=== PATIENT | male | born 1955 | race Caucasian/White ===

== ENCOUNTER → 2019-05-29 | Outpatient (CLI) | payer OTHER ==
[~2019-05-29] MED LIST: ASCO10004 PO; B CO1TAB14 PO; CHOL10003 PO; CRAN200C2 PO; FLUT9.9S NS; LACT1CAP37 PO; MAGN400T9 PO; METH500C3 PO; MINERAL SUPPLEMENT PO; MULT1TAB60 PO; OMEG1CAP23 PO; POTA99TA2 PO; TAMS-11 PO; TURM1POW PO; [UNRECOGNIZED DRUG - CODE] PO; [UNRECOGNIZED DRUG - OTHER] PO; [UNRECOGNIZED DRUG - REMARK] PO
[2019-05-29 11:38] LABS: BASOPHILS # (AUTO) 0.04 x10^3/uL (0-0.1); BASOPHILS % (AUTO) 1 % (0-1); EOSINOPHILS # (AUTO) 0.07 x10^3/uL (0-0.4); EOSINOPHILS % (AUTO) 1 % (1-7); LYMPHOCYTES # (AUTO) 2.03 x10^3/uL (1-3.4); LYMPHOCYTES % (AUTO) 40 % (22-44); MD NO; MEAN CORPUSCULAR HEMOGLOBIN 32.8 pg (27.5-34.5); MEAN CORPUSCULAR HGB CONC 33.8 g/dL (33.2-36.2); MEAN CORPUSCULAR VOLUME 96.9 fL (81-97); MEAN PLATELET VOLUME 8.3 fL (7.4-10.4); MONOCYTES # (AUTO) 0.35 x10^3/uL (0.2-0.8); MONOCYTES % (AUTO) 7 % (2-9); NEUTROPHILS # (AUTO) 2.64 x10^3/uL (1.8-6.8); NEUTROPHILS % (AUTO) 52 % (42-75); PLATELET COUNT 195 x10^3/uL (130-400); RED BLOOD COUNT 4.98 x10^6/uL (4.38-5.82); RED CELL DISTRIBUTION WIDTH 12.8 % (9.4-14.8)
[2019-05-29 11:44] LABS: MICROSCOPIC NOT IND
[2019-05-29 11:51] LABS: ALBUMIN 4.1 g/dL (3.4-5.0); ANION GAP 4 mmol/L (5-15); CALCIUM 9.8 mg/dL (8.5-10.1); CHLORIDE 107 mmol/L (98-107)
[2019-05-29 11:54] LABS: ALANINE AMINOTRANSFERASE 32 U/L (12-78); ALKALINE PHOSPHATASE 96 U/L (45-117); BILIRUBIN,TOTAL 0.6 mg/dL (0.2-1.0); TOTAL PROTEIN 7.6 g/dL (6.4-8.2)
== END | disposition home or self-care (01) ==
LOC: STAR 10:32
PROVIDERS: ATTEND Urology
DX: Z01.818 Encounter for other preprocedural examination (principal); C61 Malignant neoplasm of prostate
CPT/HCPCS: 36415; 80053; 81003; 85025; 87086; 93005

== ENCOUNTER 2019-06-07 09:50 | Day surgery (SDC) | payer OTHER ==
[~2019-06-07] VITALS: Ht 175.3 cm; Wt 72.6 kg
[2019-06-07] MEDS ORDERED: LACTATED RINGERS 1,000 ML IV SCH (10:05)
[2019-06-07 10:08] VITALS: BP_SYST 143
[2019-06-07] MEDS ORDERED: BUPIVACAINE/PF 0.25% ONE (10:08)
[2019-06-07] MEDS ORDERED: EPINEPHRINE 1 MG/ML, 1ML ONE (10:08)
[2019-06-07] MEDS ORDERED: THROMBIN 5,000 UNIT VIAL TP ONE (10:08)
[2019-06-07] MEDS ORDERED: OPIUM/BELLADONNA SUPP.RECT 16.2-60 MG ONE (10:08)
[2019-06-07] MEDS ORDERED: MIDAZOLAM 1 MG/ML, 2ML ONE (10:47)
[2019-06-07] MEDS ORDERED: FENTANYL PF 250 MCG/5ML ONE (10:47)
[2019-06-07] MEDS ORDERED: FAMOTIDINE 20 MG/2 ML IVPush ONE (11:00)
[2019-06-07] MEDS ORDERED: GABAPENTIN 300 MG CAPSULE PO ONE (11:00)
[2019-06-07] MEDS ORDERED: ACETAMINOPHEN 500 MG TABLET PO ONE (11:00)
[2019-06-07] MEDS ORDERED: DEXAMETHASONE 4 MG/ML, 1ML ONE ×2 (11:08)
[2019-06-07] MEDS ORDERED: PROPOFOL 10 MG/ML, 20ML ONE (11:09)
[2019-06-07] MEDS ORDERED: ROCURONIUM 10MG/ML,5ML ONE (11:09)
[2019-06-07] MEDS ORDERED: CEFAZOLIN 1,000 MG ONE (11:33)
[2019-06-07] MEDS ORDERED: EPHEDRINE 50 MG/ML, 1ML ONE (11:55)
[2019-06-07] MEDS ORDERED: ONDANSETRON 2MG/ML, 2ML IV PRN (13:30)
[2019-06-07] MEDS ORDERED: MIDAZOLAM 1 MG/ML, 2ML IV PRN (13:30)
[2019-06-07] MEDS ORDERED: FENTANYL PF 100 MCG/2ML IV PRN (13:30)
[2019-06-07] MEDS ORDERED: PROMETHAZINE 25 MG/ML, 1ML IV PRN (13:30)
[2019-06-07] MEDS ORDERED: LABETALOL 5MG/ML, 20ML IV PRN (13:30)
[2019-06-07] MEDS ORDERED: HYDROmorphone 2 MG/ML, 1ML IVPush PRN (13:30)
[2019-06-07] MEDS ORDERED: hydrALAzine 20 MG/ML, 1ML IV PRN (13:30)
[2019-06-07] MEDS ORDERED: OXYcodone 5 MG/5 ML ORAL.SOL UDC PO PRN (13:30)
[2019-06-07] MEDS ORDERED: MEPERIDINE/PF 25MG/ML,1ML IVPush PRN (13:30)
[2019-06-07] MEDS ORDERED: ONDANSETRON 2MG/ML, 2ML ONE (14:50)
[2019-06-07] MEDS ORDERED: OXYcodone 5 MG/5 ML ORAL.SOL UDC ONE (15:31)
[2019-06-07] MEDS ORDERED: FENTANYL PF 100 MCG/2ML ONE (15:31)
[2019-06-07] MEDS ORDERED: OPIUM/BELLADONNA SUPP.RECT 16.2-60 MG PR PRN (17:00)
[2019-06-07] MEDS ORDERED: morphine SULFATE 10 MG/ML, 1ML IV PRN (17:00)
[2019-06-07] MEDS: ACETAMINOPHEN 500 MG TABLET PO SCH ×2 (17:02→23:08)
[2019-06-07] MEDS: D5%-0.45NACL+KCL 20MEQ 1,000 ML IV SCH (18:30)
[2019-06-07 20:25] VITALS: BP 126/67
[2019-06-07] MEDS: OXYcodone IR 5MG TABLET PO PRN (22:11)
[2019-06-07 23:57] VITALS: BP 97/58
[2019-06-08] MEDS: D5%-0.45NACL+KCL 20MEQ 1,000 ML IV SCH ×3 (02:50→18:00)
[2019-06-08 03:12] VITALS: BP 94/54
[2019-06-08] MEDS: ACETAMINOPHEN 500 MG TABLET PO SCH ×4 (05:22→23:13)
[2019-06-08 06:15] LABS: ANION GAP 5 mmol/L (5-15); CALCIUM 8.5 mg/dL (8.5-10.1); CHLORIDE 109 mmol/L (98-107)
[2019-06-08 06:17] LABS: CREATININE 1.19 mg/dL (0.7-1.3)
[2019-06-08 06:48] VITALS: BP 104/64
[2019-06-08] MEDS: ENOXAPARIN 40 MG/0.4 ML SQ SCH (08:20)
[2019-06-08] MEDS: OXYcodone IR 5MG TABLET PO PRN ×3 (10:13→20:39)
[2019-06-08] MEDS ORDERED: OXYC5CAP2 PO (15:34)
[2019-06-08 16:07] VITALS: BP 122/77
[2019-06-08 19:48] VITALS: BP 134/80
[2019-06-08 19:49] VITALS: BP 123/74
[2019-06-09] MEDS: OXYcodone IR 5MG TABLET PO PRN ×3 (00:45→08:19)
[2019-06-09 00:47] VITALS: BP 129/78
[2019-06-09] MEDS: D5%-0.45NACL+KCL 20MEQ 1,000 ML IV SCH (01:17)
[2019-06-09] MEDS: ACETAMINOPHEN 500 MG TABLET PO SCH ×2 (04:57→11:10)
[2019-06-09 08:11] VITALS: BP 139/76
[2019-06-09] MEDS: ENOXAPARIN 40 MG/0.4 ML SQ SCH (08:19)
[2019-06-09 10:34] VITALS: BP 139/72
== END 2019-06-09 11:32 | disposition home or self-care (01) ==
LOC: OUT 09:50 → 4NE 16:10 → OUT 16:55 → 4NE 16:57 → UNDOADMIN 16:57 → 4NE 06-08 15:48 → DCLOUNGE 06-08 15:48 → 4NE 06-08 17:56 → DCLOUNGE 06-09 11:20 → UNDODISIN 06-09 11:32 → OUT 06-09 11:32
PROVIDERS: ATTEND Urology
DX: C61 Malignant neoplasm of prostate (principal); I10 Essential (primary) hypertension; Z79.899 Other long term (current) drug therapy; Z91.011 Allergy to milk products; Z82.49 Family history of ischemic heart disease and other diseases of the circulatory system
CPT/HCPCS: 36415; 55866; 80048; 82570; 85014; 85018; 86850; 86900; 88309; C1729; C1760; J0171; J0690; J1100; J1650; J2250; J2405; J2704; J3010; J3480; J3490; J7120; G0378

== ENCOUNTER 2019-06-14 08:35 | Outpatient (CLI) | payer OTHER ==
[~2019-06-14 08:35] MED LIST changes: +OXYC5CAP2 PO
== END 2019-06-14 23:59 | disposition home or self-care (01) ==
LOC: RAD 08:35
PROVIDERS: ATTEND Urology
DX: C61 Malignant neoplasm of prostate (principal); Z90.79 Acquired absence of other genital organ(s)
CPT/HCPCS: 51600; 74430; Q9958